=== PATIENT | male | born 1995 | race Caucasian/White ===

== ENCOUNTER 2023-12-15 14:13 | Emergency (ER) | payer MEDICAID ==
[~2023-12-15] VITALS: Ht 170.2 cm; Wt 66.0 kg
[2023-12-15] MEDS ORDERED: ativan (14:17)
[2023-12-15 15:15] VITALS: O2SAT 99
[2023-12-15 15:19] VITALS: BP 124/65; PULSE 81; RESP 15; TEMP 98.6
== END 2023-12-15 17:38 | disposition home or self-care (01) ==
LOC: ER 14:13
DX: R46.2 Strange and inexplicable behavior (principal)
CPT/HCPCS: 99283